=== PATIENT | female | born 1970 | race Caucasian/White ===

== ENCOUNTER → 2018-02-09 | Outpatient (CLI) | payer BC ==
[2018-02-09 10:13] LABS: BASO # 0.1 x10^3/uL (0.0-0.2); BASO % 2 % (0-3); EOS # 0.2 x10^3/uL (0.0-0.7); EOS % 3 % (0-3); HEMATOCRIT 33.5 % (36.0-47.0); HEMOGLOBIN 10.9 g/dL (12.0-15.5); LYMPH # 1.5 x10^3/uL (1.0-4.8); LYMPH % 29 % (24-48); MEAN CORPUSCULAR HEMOGLOBIN 26 pg (25-35); MEAN CORPUSCULAR HGB CONC 32 g/dL (31-37); MEAN CORPUSCULAR VOLUME 79 fL (79-100); MONO # 0.5 x10^3/uL (0.0-1.1); MONO % 11 % (0-9); NEUT # 2.9 x10^3uL (1.8-7.7); NEUT % 55 % (31-73); PLATELET COUNT 267 x10^3/uL (140-400); RED BLOOD COUNT 4.27 x10^6/uL (3.50-5.40); RED CELL DISTRIBUTION WIDTH 17.4 % (11.5-14.5); WHITE BLOOD COUNT 5.2 x10^3/uL (4.0-11.0)
[2018-02-09 10:25] LABS: ALBUMIN 3.3 g/dL (3.4-5.0); ALBUMIN/GLOBULIN RATIO 0.8 (1.0-1.7); CALCIUM 8.7 mg/dL (8.5-10.1); CREATININE 0.7 mg/dL (0.6-1.0); GFR 88.9; POTASSIUM 4.3 mmol/L (3.5-5.1); TOTAL BILIRUBIN 0.3 mg/dL (0.2-1.0); TOTAL PROTEIN 7.6 g/dL (6.4-8.2)
[2018-02-09 10:27] LABS: CHOLESTEROL/HDL RATIO 2.9
== END | disposition home or self-care (01) ==
LOC: LAB 09:39
DX: Z00.01 Encounter for general adult medical examination with abnormal findings (principal)
CPT/HCPCS: 36415; 80053; 80061; 85025

== ENCOUNTER → 2021-04-30 | Outpatient (CLI) | payer BC, OTHER ==
--- NOTE | 2021-04-30 11:41 | KCIC ---
Coronary artery calcium score dated 04/30/2021. No comparison available. Clinical Indication: Calcium screening. Increased cholesterol Technical factors: Computed tomography of the heart was performed with ECG gating, suspended respiration and without the administration of contrast material. Post processing was performed on the 3-D computer workstation u sing diastolic phase images to measure the amount of coronary vascular calcium. Scoring was aquired u sing the Agatston Method. Coronary arteries: Calcium is absent. Total Agaston calcium score equals 0. Coronary vascular calcium is not detected with this exam. This does not absolutely rule out the prese nce of atherosclerotic plaque, including unstable plaque, but does imply a very low likelihood of sig nificant luminal obstruction. A negative test may be consistent with a low risk of cardiovascular event in the next 2 to 5 years. Thorax: Heart size is within normal limits. There is a tiny pericardial effusion. There is a noncalcified pul monary nodule in the right lower lobe on image 14 that measures about 4 mm, nonspecific. There is als o a small noncalcified pulmonary nodule left lower lobe laterally on image 27 that measures about 4 m m. Imaged portions of the mediastinum and pulmonary parenchyma otherwise unremarkable. Circumscribed low-density foci in the liver, likely cysts. Conclusions: 1. Normal study, no coronary artery calcium identified. 2. Small noncalcified pulmonary nodules in right lower lobe and left lower lobe, nonspecific. Follow- up imaging may be warranted based on risk factors. Recommendations: Healthy lifestyle choices including eating appropriately and exercise are encouraged. Additional supporting information concerning the findings and recommendation contained within this report can be found in the consensus statements on coronary vascular calcium published by the [employer] and [employer] [employer] 5 Conference (Circulation 1996 ; 94: 2961-5535; J Am James Cardiol 2000; 36: 326-340 and Circulation 2000; 101: 111-116). Electronically signed by: Art Andujar MD (04/30/2021 11:38 AM) LEYLA
== END ==
LOC: KCIC CT 08:42
PROVIDERS: ATTEND Nurse Practitioner Family
DX: Z13.6 Encounter for screening for cardiovascular disorders (principal); R91.8 Other nonspecific abnormal finding of lung field; E78.2 Mixed hyperlipidemia
CPT/HCPCS: 75571